=== PATIENT | female | born 1980 | race African-American/Black ===

== ENCOUNTER 2016-03-25 13:02 | Inpatient (IN) | payer OTHER ==
[2016-03-25] VITALS (14 sets, daily range): BP systolic 127–150; RESP 16–20; TEMP 97.6; Ht 170.2 cm; Wt 98.4 kg
[~2016-03-25] VITALS: Ht 170.2 cm; Wt 98.4 kg
[~2016-03-25 13:02] MED LIST: FENTANYL 100 MCG/2 ML AMP IV ONE; MEPERIDINE 25 MG/ML IV ONE; MIDAZOLAM 2 MG/2 ML INJ IV ONE; MORPHINE 10 MG VIAL IV ONE; OXYTOCIN 10 UNITS/ML VIAL IV ONE
[2016-03-25] MEDS ORDERED: BETAMETHASONE SUSP 6 MG/ML VIAL 5 ML IM ONE ×2 (15:25→15:35)
[2016-03-25] MEDS ORDERED: METOCLOPRAMIDE 10 MG/2 ML VIAL ONE (15:30)
[2016-03-25] MEDS ORDERED: CEFAZOLIN (LD/OB) 100 ML IV ONE (15:31)
[2016-03-25] MEDS ORDERED: FAMOTIDINE 20 MG INJ ONE (15:31)
[2016-03-25] MEDS ORDERED: ONDANSETRON 4 MG VIAL IV PRN ×3 (16:10→18:30)
[2016-03-25] MEDS ORDERED: MEPERIDINE 25 MG/ML IV PRN (16:10)
[2016-03-25] MEDS ORDERED: NALOXONE 0.4 MG/ML AMP IV PRN (16:10)
[2016-03-25] MEDS ORDERED: MORPHINE 4 MG/ML SYR IV PRN (16:10)
[2016-03-25] MEDS ORDERED: DIPHENHYDRAMINE 50 MG/ML VIAL IV PRN (16:10)
[2016-03-25] MEDS ORDERED: OXYCODONE 5 MG TAB PO PRN (16:10)
[2016-03-25] MEDS ORDERED: DILAUDID 1 MG/ML AMP IV PRN (16:10)
[2016-03-25] MEDS ORDERED: MORPHINE 2 MG/ML SYR IV PRN ×2 (16:10)
[2016-03-25] MEDS ORDERED: SALINE FLUSH 10 ML FLUSH PRN (16:10)
[2016-03-25] MEDS ORDERED: BUTORPHANOL 1 MG/ML VIAL IV PRN (16:10)
[2016-03-25] MEDS ORDERED: METOCLOPRAMIDE 10 MG/2 ML VIAL IV PUSH ONE (18:05)
[2016-03-25] MEDS ORDERED: FAMOTIDINE 20 MG INJ IV ONE (18:05)
[2016-03-25] MEDS ORDERED: CEFAZOLIN (LD/OB) 100 ML IV PRN (18:05)
[2016-03-25] MEDS ORDERED: LACT RINGERS 1,000 ML IV SCH ×2 (18:05→18:30)
[2016-03-25] MEDS: MORPHINE 4 MG/ML SYR IV PRN ×3 (18:23→20:07)
[2016-03-25] MEDS ORDERED: TDaP 0.5 ML VIAL IM.VACC ONE (18:30)
[2016-03-25] MEDS ORDERED: MEASLES,MUMPS,RUBELLA VAC SUBQ.VACC ONE (18:30)
[2016-03-25] MEDS: PROMETHAZINE 25 MG/ML VIAL IV PRN ×2 (18:35→21:39)
[2016-03-25] MEDS: KETOROLAC 30 MG/ML VIAL IV SCH (19:39)
[2016-03-25] MEDS: SALINE FLUSH 10 ML FLUSH SCH (20:00)
[2016-03-25] MEDS ORDERED: MISSING DOSE XX ONE (20:20)
[2016-03-25] MEDS ORDERED: ACETAMINOPHEN 1,000 MG/100 ML IV ONE (20:20)
[2016-03-26] VITALS (8 sets, daily range): BP systolic 125–153; RESP 16–24; TEMP 97.7–98.7
[2016-03-26] MEDS: KETOROLAC 30 MG/ML VIAL IV SCH ×3 (01:09→12:09)
[2016-03-26] MEDS: MISOPROSTOL 100 MCG TAB PO SCH ×4 (01:12→18:05)
[2016-03-26] MEDS: OXYTOCIN 15 UNITS/250 ML NS 250 ML IV SCH ×2 (02:44→07:41)
[2016-03-26] MEDS ORDERED: SODIUM CHLORIDE 0.9% 500 ML IV ONE (05:35)
[2016-03-26] MEDS: SODIUM CHLORIDE 0.9% FLUSH BAG 500 ML IV SCH (06:00)
[2016-03-26] MEDS: SALINE FLUSH 10 ML FLUSH SCH ×2 (08:00→20:00)
[2016-03-26] MEDS: Ibuprofen 600 MG TAB PO SCH ×3 (12:00→23:38)
[2016-03-27 05:08] VITALS: BP_SYST 120; RESP 18; TEMP 98.2
[2016-03-27] MEDS: Ibuprofen 600 MG TAB PO SCH ×4 (06:28→23:13)
[2016-03-27] MEDS: SALINE FLUSH 10 ML FLUSH SCH ×2 (07:32→21:08)
[2016-03-27] MEDS: SODIUM CHLORIDE 0.9% FLUSH BAG 500 ML IV SCH (07:32)
[2016-03-27 09:25] VITALS: BP_SYST 117; RESP 18; TEMP 98.2
[2016-03-27] MEDS: MAG HYDROX 30 ML UDC PO SCH ×3 (09:38→23:21)
[2016-03-27 17:06] VITALS: BP_SYST 128; RESP 20; TEMP 98.5
[2016-03-28] MEDS: Ibuprofen 600 MG TAB PO SCH ×4 (05:44→23:34)
[2016-03-28] MEDS: SODIUM CHLORIDE 0.9% FLUSH BAG 500 ML IV SCH (05:52)
[2016-03-28 06:13] VITALS: BP_SYST 124; RESP 20; TEMP 98.1
[2016-03-28] MEDS: SALINE FLUSH 10 ML FLUSH SCH ×2 (08:00→20:00)
[2016-03-28] MEDS: MAG HYDROX 30 ML UDC PO SCH ×3 (08:15→23:34)
[2016-03-28 09:36] VITALS: BP_SYST 112; TEMP 98.3
[2016-03-28 09:37] VITALS: RESP 18
[2016-03-28 13:18] VITALS: BP_SYST 125; TEMP 97.3
[2016-03-28 13:19] VITALS: RESP 16
[2016-03-28 17:34] VITALS: BP_SYST 132; RESP 18; TEMP 97.2
[2016-03-29] MEDS: Ibuprofen 600 MG TAB PO SCH ×3 (05:37→17:07)
[2016-03-29] MEDS: SODIUM CHLORIDE 0.9% FLUSH BAG 500 ML IV SCH (06:00)
[2016-03-29 06:09] VITALS: BP_SYST 137; RESP 16; TEMP 98.4
[2016-03-29] MEDS: SALINE FLUSH 10 ML FLUSH SCH (07:21)
[2016-03-29] MEDS: MAG HYDROX 30 ML UDC PO SCH ×2 (09:08→16:44)
[2016-03-29 09:11] VITALS: BP_SYST 125; RESP 16; TEMP 97.8
[2016-03-29 17:03] VITALS: BP_SYST 133; RESP 18; TEMP 97.8
[2016-03-29 17:04] VITALS: RESP 18; TEMP 97.8
== END 2016-03-29 18:00 | disposition home or self-care (01) | DRG 766 ==
LOC: LDOP 13:02 → LD 15:25 → OB 21:46
PROVIDERS: ADMIT Obstetrics & Gynecology Reproductive Endocrinology; ATTEND Obstetrics & Gynecology Reproductive Endocrinology
PROC: 10D00Z1 Extraction of Products of Conception, Low, Open Approach (ICD-10-PCS; principal; 2016-03-25)
PROC: 0UN90ZZ Release Uterus, Open Approach (ICD-10-PCS; 2016-03-25)
DX: O76 Abnormality in fetal heart rate and rhythm complicating labor and delivery (principal); O99.214 Obesity complicating childbirth; N73.6 Female pelvic peritoneal adhesions (postinfective); Z3A.32 32 weeks gestation of pregnancy; Z37.0 Single live birth; O09.513 Supervision of elderly primigravida, third trimester; O34.29 Maternal care due to uterine scar from other previous surgery; O99.89 Other specified diseases and conditions complicating pregnancy, childbirth and the puerperium
CPT/HCPCS: 59025; 82803; 85025; 86850; 86900; 86901; 88307